=== PATIENT | male | born 1975 | race Caucasian/White ===

== ENCOUNTER 2016-10-23 19:41 | Emergency (ER) | payer BC ==
[2016-10-23 20:03] VITALS: RESP 18; TEMP 98.4
--- NOTE | 2016-10-23 20:19 | PDOC ---
Back Pain / Injury HPI - General Chief Complaint: Neck / Back Complaint Stated Complaint: BACK PAIN Date Seen by Provider: 10/23/16 Time Seen by Provider: 20:13 Source: Patient Exam Limitations: POSITIVE: No limitations Nurse's Notes Reviewed & Considered: Yes EMS Report Reviewed & Considered: Unavailable - History of Present Illness Initial Comments: This is a 41-year-old male who presents to the emergency department with a history of increasing back pain and spasms over the last hour or so prior to arrival. He has a previous history of one episode similar to this a couple years ago that was precipitated by lifting a heavy door and then bending over to use a shop vac. He states this feels exactly like the previous episode. He did take 2 Flexeril and [place] that were left over from the previous episode without any improvement. He is unable to move much so he called the ambulance to bring him in for evaluation. The pain does not radiate down his legs, he has no numbness or tingling, no loss of bowel or bladder function. He did receive 3 mg of Valium IV in route in the ambulance and that seems to help somewhat. - Patient Home Medications Home Medications: Home Medications Cyclobenzaprine HCl [Flexeril] 2 tab PO PRN PRN 10/23/16 HYDROcodone/APAP 5/325 Tab [[place] 5/325 Tab] 1 tab PO PRN PRN 10/23/16 - Patient Allergies Allergies/Adverse Reactions: Allergies Allergy/AdvReac Type Severity Reaction Status Date / Time No Known Allergies Allergy Verified 10/23/16 19:52 Past Medical History - heen HEENT History: Denies History Cardiovascular History: Denies History Respiratory History: Denies History Gastrointestinal History: Denies History Genitourinary History: Denies History Endocrine History: Denies History Musculoskeletal History: Back Pain Neurological History: Denies History Blood Disorders: Denies History Psychiatric History: Denies History History of Sexually Transmitted Diseases: No Male Reproductive History: Denies History Cancer History: Denies History In Past Year Been Physically Harmed or Verbally Threatened: No History of MDRO: No History of Other Communicable Diseases: No Tobacco Use: Never Smoker Alcohol Use: Occasionally Substance Use Type: Marijuana Previous Surgical History: No Significant Family History: No pertinent family hx Past Medical History Reviewed: Reviewed - No Changes ROS - Limitations ROS Limitations: No Limitations Constitution: DENIES: Weakness Musculoskeletal: REPORTS: Back Pain, Recent Injury, Other (No sciatica). DENIES : Muscle Aches, Neck Pain Genitourinary: REPORTS: Difficulty Urinating Back Physical Assessment - General Appearance General Appearance: REPORTS: Alert, Cooperative, Moderate Distress - HEENT HEENT: NEGATIVE: Scleral Icterus - Respiratory / CVS Respiratory / CVS: POSITIVE: Breath Sounds Normal, No Respiratory Distress, Heart Sounds Normal, Regular Rate/Rhythm - Skin Skin: REPORTS: Warm, Dry, No Rash - Extremities Musculoskeletal: REPORTS: Back Pain, Recent Injury - Neurological / Psychological Neuro / Psych: POSITIVE: Oriented X3, Sensation Normal, Mood Appropriate, Affect Appropriate, Reflexes Normal, Other (Straight leg raise test is negative bilaterally) Back Progress - Patient's Progress Pain Medication Addressed: POSITIVE: Yes Re-Examine Time: 21:27 Re-Examine Comment: Pain is improved, he is able to get up and walk around the exam room. He still has some pain, more so than the left lower lumbar region as opposed to the right. Status: POSITIVE: Improved MDM / ED Course: Emergency room course: After initial evaluation, the patient was given 15 mg Toradol IV as well as 60 mg of Norflex IV in addition to the Valium he received in the ambulance. Once those medications had a chance to take effect, his pain was improved and was able to get up and walk around exam room and the pain was tolerable. He will be discharged with his with a prescription for Voltaren as well as Norflex, he still has some [place] at home for the night. I suggested dry needle therapy for continued treatment of his muscle spasm. Return the emergency department if pain gets worse again or if leg weakness develops. Patient Care Time - Estimated PCT Patient Care Time (In Minutes): 15 Vital Signs - Recent Vital Signs Vital Signs: Vital Signs (Last 8 hours) Temp Pulse Resp BP Pulse Ox 10/23/16 19:41 98.4 F 107 H 18 129/94 97 Discharge Clinical Impression: Acute low back pain Discharge Disposition: Discharged to Home Condition: Good Patient Instructions Given at Discharge: Low Back Strain (ED)
[2016-10-23] MEDS ORDERED: KETOROLAC 15 MG/1 ML VIAL IVP ONE (20:21)
== END 2016-10-23 21:40 | disposition home or self-care (01) ==
LOC: ER 19:41
DX: M54.5 Low back pain (principal); M62.830 Muscle spasm of back
CPT/HCPCS: 96374; 96375; 99282; 99283; J1885; J2360